=== PATIENT | male | born 1980 | race Caucasian/White ===

== ENCOUNTER 2023-06-09 21:38 | Emergency (ER) | payer MEDICAID ==
[~2023-06-09] VITALS: Ht 177.8 cm; Wt 101.2 kg
[2023-06-09 22:07] VITALS: BP_SYST 138; PULSE 90; RESP 17; TEMP 97.4; O2SAT 97
[2023-06-09 22:55] LABS: BASOPHILS # (AUTO) 0.1 K/uL (0.0-0.2); BASOPHILS % (AUTO) 0.8 % (0.0-2.0); EOSINOPHILS # (AUTO) 0.2 K/uL (0.0-0.4); EOSINOPHILS % (AUTO) 2.4 % (0.0-4.0); HEMATOCRIT 42.3 % (36-54); HEMOGLOBIN 13.9 g/dL (14.0-18.0); LYMPHOCYTES # (AUTO) 2.8 K/uL (1.0-5.5); LYMPHOCYTES % (AUTO) 40.5 % (20.5-51.5); MEAN CORPUSCULAR HEMOGLOBIN 27 pg (27-31); MEAN CORPUSCULAR HGB CONC 33 % (32-36); MEAN CORPUSCULAR VOLUME 82 fL (79.0-98.0); MONOCYTES # (AUTO) 0.5 K/uL (0.0-1.0); MONOCYTES % (AUTO) 7.2 % (1.7-9.3); NEUTROPHILS # (AUTO) 3.3 K/uL (1.8-7.7); NEUTROPHILS % (AUTO) 49.1 % (40.0-70.0); PLATELET COUNT (AUTO) 208 K/uL (130-430); RED BLOOD CELL COUNT(AUTO) 5.15 MIL/uL (4.2-6.2); RED CELL DISTRIBUTION WIDTH 13.7 % (9.0-15.0); WHITE BLOOD COUNT (AUTO) 6.8 K/uL (4.8-10.8)
[2023-06-09 23:04] LABS: BILIRUBIN,URINE NEGATIVE (NEGATIVE); BLOOD, URINE NEGATIVE (NEGATIVE); CLARITY/URINE CLEAR (CLEAR); COLOR,URINE YELLOW (YELLOW); GLUCOSE,URINE NEGATIVE (NEGATIVE); KETONES,URINE TRACE (NEGATIVE); LEUKOCYTE ESTERASE ,URINE NEGATIVE (NEGATIVE); NITRITE, URINE NEGATIVE (NEGATIVE); PH,URINE 6.5 (5.0-8.0); PROTEIN URINE NEGATIVE (NEGATIVE); UROBILINOGEN,URINE 0.2 (0.2-1.0)
[2023-06-09 23:17] LABS: CREATININE 1.03 mg/dL (0.55-1.30); POTASSIUM 3.5 mmol/L (3.5-5.1)
[2023-06-09 23:22] LABS: ALBUMIN 3.5 g/dL (3.4-4.8); TOTAL BILIRUBIN 0.2 mg/dL (0.0-1.0); TOTAL PROTEIN, SERUM 7.5 g/dL (6.4-8.3)
[2023-06-10] MEDS ORDERED: KETOROLAC TROMETHAMINE 30 MG VIAL IM ONE (00:45)
[2023-06-10] MEDS ORDERED: PHENAZOPYRIDINE HCL 100 MG TABLET PO ONE (00:45)
[2023-06-10] MEDS ORDERED: TAMSULOSIN HCL 0.4 MG CAP PO ONE (00:45)
[2023-06-10] MEDS ORDERED: LORazepam 1 MG TABLET PO ONE (00:45)
[2023-06-10] MEDS ORDERED: TAMSULOSIN HCL 0.4 MG CAP ONE (01:01)
[2023-06-10] MEDS ORDERED: PHEN-726 PO (02:45)
[2023-06-10] MEDS ORDERED: NAPR-688 PO (02:45)
[2023-06-10] MEDS ORDERED: ACET-2634 PO (02:45)
[2023-06-10] MEDS ORDERED: TAMS-11 PO (02:45)
[2023-06-10 02:59] VITALS: BP_SYST 126; PULSE 84; RESP 17; TEMP 97.6; O2SAT 95
== END 2023-06-10 02:58 | disposition home or self-care (01) ==
LOC: SED 21:38
DX: N40.1 Benign prostatic hyperplasia with lower urinary tract symptoms (principal); R35.0 Frequency of micturition; R30.0 Dysuria; K76.0 Fatty (change of) liver, not elsewhere classified; R10.30 Lower abdominal pain, unspecified; Z79.899 Other long term (current) drug therapy
CPT/HCPCS: 99285; 74176; 80053; 81001; 83690; 85025; 36415; 76376; 81003; 96372; J1885